=== PATIENT | female | born 1995 | race Caucasian/White ===

== ENCOUNTER 2024-04-03 02:10 | Emergency (ER) | payer OTHER, BC ==
[2024-04-03 02:24] VITALS: BP 131/72; O2SAT 98
--- NOTE | 2024-04-03 02:31 | ED Physician Documentation ---
PD HPI UPPER EXT INJURY - Stated complaint Stated Complaint: L HAND FINGER LAC - Chief complaint Chief Complaint: Trauma Ext - History obtained from History obtained from: Patient - Additonal information Additional information: HPI from patient. Patient presents for evaluation of finger laceration sustained at work at approximately 10:30 PM tonight. Patient as cutting apples when the knife slipped, lacerating the tip of her left middle finger. She is right hand dominant. last tetanus immunization was approximately 6 years ago. Her chief concern was recurrent bleeding from the laceration. She c/o mild pain. ROM intact, denies numbness, denies weakness. PD PAST MEDICAL HISTORY - Past Medical History Past Medical History: No - Past Surgical History Past Surgical History: No - Allergies Allergies/Adverse Reactions: Allergies Allergy/AdvReac Type Severity Reaction Status Date / Time No Known Drug Allergies Allergy Verified 04/03/24 02:23 - Social History Does the pt smoke?: No Smoking Status: Never smoker - Immunizations Immunizations: TDAP >10years/unknown PD ED PE NORMAL - Vitals Vital signs reviewed: Yes - General General: Alert and oriented X 3, No acute distress, Well developed/nourished - Neuro Neuro: No sensory deficit PD ED PE EXPANDED - Extremities BJ UE/Hands Visual: 1 - laceration (1 cm bevelled laceration, no active bleeding) Results - Vitals Vitals: Vital Signs - 24 hr 04/03/24 02:21 Temperature 36.4 C L Heart Rate 78 Respiratory 18 Rate Blood Pressure 131/72 H O2 Saturation 98 Oxygen O2 Source Room air Procedures - Laceration (location) Finger left Length in cm: 1 Wound type: Linear, Into subcut fat, Clean Neurovascular status: Sensory intact, Motor intact, Vascular intact Tendon involvement: Tendon intact Wound preparation: Irrigated copiously NS, Wound explored Skin layer closure: Dermabond Other: Patient tolerated well, No complications, Neurovascular intact, Tetanus UTD PD Medical Decision Making - ED course Complexity details: considered differential, d/w patient ED course: fingertip laceration repaired with dermabond. Tetanus UTD (between 5-10 years ago, and this is not a tetanus-prone wound/injury) Departure - Departure Disposition: 01 Home, Self Care Clinical Impression: Finger laceration Condition: Good Instructions: ED Laceration Ext Skin Glue Discharge Date/Time: 04/03/24 03:18
== END 2024-04-03 03:18 | disposition home or self-care (01) ==
LOC: ED 02:10
DX: S61.213A Laceration without foreign body of left middle finger without damage to nail, initial encounter (principal); W26.0XXA Contact with knife, initial encounter; Y93.G1 Activity, food preparation and clean up; Y92.511 Restaurant or cafe as the place of occurrence of the external cause; Y99.0 Civilian activity done for income or pay
CPT/HCPCS: 1040M; 12001; 99283